=== PATIENT | male | born 1980 | race Caucasian/White ===

== ENCOUNTER → 2017-07-20 11:28 | Outpatient (CLI) | payer OTHER, SELFPAY ==
[2017-07-20 10:22] VITALS: BP 126/78; BMI 27.6
[2017-07-20 12:36] LABS: Anion Gap 7 (5-15); BUN 18 mg/dL (7-18); BUN/Creat Ratio 18.1 RATIO (10-20); Calcium,Total 8.6 mg/dL (8.5-10.1); Chloride 106 mmol/L (98-107); Cholesterol 197 mg/dL (200); Creatinine, Serum 0.99 mg/dL (0.70-1.30); EST Glomerular Filtration Rate 91 mL/min (>60); Est Glom Filt Rate - Afr Amer 110 mL/min (>60); Glucose 92 mg/dL (74-106); High Density Lipoprotein 35 mg/dL; Potassium 4.1 mmol/L (3.5-5.1); Sodium Level 140 mmol/L (136-145); Thyroid Stim Hormone (TSH) 1.34 uIU/mL (0.358-3.74); Triglycerides 132 mg/dL; Very Low Density Lipoprotein 26 mg/dL (5-40)
== END ==
PROVIDERS: Family Provider Physician Assistant; PCP Physician Assistant; Visit Provider Internal Medicine Cardiovascular Disease
DX: R07.9 Chest pain, unspecified (principal); R00.2 Palpitations
CPT/HCPCS: 36415; 80048; 80061; 84443

== ENCOUNTER 2018-01-01 14:11 | Emergency (ER) | payer OTHER, SELFPAY ==
[2018-01-01 14:12] VITALS: BP 130/73; PULSE 74; RESP 16; TEMP 36.7; O2SAT 98; BMI 29.0
[2018-01-01] MEDS: Diphth,Pertuss(Acell),Tet Vac 0.5 ML Vial IM (14:53)
--- NOTE | 2018-01-01 15:17 | ED.VISSUMM ---
- ER Visit Summary Date of Service: 01/01/18 Chief Complaint: Dog bite to face History of Present Illness: The patient is a 37 M who went over to his attendant/neighbor's house to have a beer this afternoon and the tenants dog jumped up onto his face and bit him. He notes a laceration over the right infraorbital skin. Denies any direct ocular trauma. Notes his tetanus is not up-to-date. Physical Examination: Afebrile vital signs are stable There is approximately a 1.5 cm T-shaped laceration to the right infraorbital skin. It is gaping. There is abrasion to the upper lid. I do not see any global trauma. Emergency Department Course and Treatment: Tetanus was updated with Jocelin. Wound was locally anesthetized using 1% lidocaine. 2 5-0 simple interrupted rapid stitches were placed. Wound care discussed with patient. We talked about the high risk of infection. He will be placed on Augmentin. Impression: 1. 1.5 cm facial laceration with repair 2. Dog bite 3. Tetanus update This note was generated with [employer] dictation software. It may contain incorrect words, spelling, and punctuation that were not noted in review of the chart prior to signing ED Disposition - Plan for ED Patient: Disposition: Home or Assisted Living Chief Complaint: Bite Instructions: ED Bite Dog Prescriptions: Amox/Clavulanate Tablet [Augmentin Tablet] 875 mg PO Q12H #20 tab Referrals: Pj Ovalle PA [Primary Care Provider] - As Needed
--- NOTE | 2018-01-01 15:20 | ED.DCSUM_ITS ---
- ER Visit Summary Date of Service: 01/01/18 Chief Complaint: Dog bite to face History of Present Illness: The patient is a 37 M who went over to his attendant /neighbor's house to have a beer this afternoon and the tenants dog jumped up onto his face and bit him. He notes a laceration over the right infraorbital skin. Denies any direct ocular trauma. Notes his tetanus is not up-to-date. Physical Examination: Afebrile vital signs are stable There is approximately a 1.5 cm T-shaped laceration to the right infraorbital skin. It is gaping. There is abrasion to the upper lid. I do not see any global trauma. Emergency Department Course and Treatment: Tetanus was updated with Jocelin. Wound was locally anesthetized using 1% lidocaine. 2 5-0 simple interrupted rapid stitches were placed. Wound care discussed with patient. We talked about the high risk of infection. He will be placed on Augmentin. Impression: 1. 1.5 cm facial laceration with repair 2. Dog bite 3. Tetanus update This note was generated with [employer] dictation software. It may contain incorrect words, spelling, and punctuation that were not noted in review of the chart prior to signing ED Disposition - Plan for ED Patient: Disposition: Home or Assisted Living Chief Complaint: Bite Instructions: ED Bite Dog Prescriptions: Amox/Clavulanate Tablet [Augmentin Tablet] 875 mg PO Q12H #20 tab Referrals: Pj Ovalle PA [Primary Care Provider] - As Needed
== END 2018-01-01 15:33 | disposition home or self-care (01) ==
PROVIDERS: Emergency Provider Emergency Medicine; Family Provider Physician Assistant; PCP Physician Assistant
DX: S01.111A Laceration without foreign body of right eyelid and periocular area, initial encounter (principal); Z23 Encounter for immunization; W54.0XXA Bitten by dog, initial encounter; Y93.89 Activity, other specified; Y92.008 Other place in unspecified non-institutional (private) residence as the place of occurrence of the external cause; Y99.8 Other external cause status
CPT/HCPCS: 12011; 90471; 90715; 99283

== ENCOUNTER → 2019-03-27 | Outpatient (CLI) | payer OTHER, SELFPAY ==
[2019-03-20 15:40] VITALS: BMI 27.6
[2019-03-27 13:06] LABS: ALB/GLOB Ratio 1.2 RATIO (0.9-2.4); AST(SGOT) 16 U/L (15-37); Alanine Aminotransfer ALT/SGPT 35 U/L (16-61); Albumin, Serum 4.3 g/dL (3.2-5.0); Alkaline Phosphatase 62 U/L (45-117); Anion Gap 5 (5-15); BUN 13 mg/dL (7-18); BUN/Creat Ratio 13.1 RATIO (10-20); Calcium,Total 9.3 mg/dL (8.5-10.1); Chloride 107 mmol/L (98-107); Cholesterol 206 mg/dL (200); Creatinine, Serum 0.99 mg/dL (0.70-1.30); EST Glomerular Filtration Rate 90 mL/min (>60); Est Glom Filt Rate - Afr Amer 109 mL/min (>60); Globulin 3.6 g/dL (2.2-4.2); Glucose 95 mg/dL (74-106); High Density Lipoprotein 38 mg/dL; Protein, Total 7.9 g/dL (6.4-8.2); Sodium Level 138 mmol/L (136-145); Triglycerides 89 mg/dL; Very Low Density Lipoprotein 18 mg/dL (5-40)
== END | disposition home or self-care (01) ==
LOC: BIMLAB 11:56
PROVIDERS: Family Provider Physician Assistant; PCP Physician Assistant; Visit Provider Family Medicine
DX: R07.9 Chest pain, unspecified (principal)
CPT/HCPCS: 36415; 80053; 80061

== ENCOUNTER 2019-04-08 12:34 | Emergency (ER) | payer OTHER, SELFPAY ==
[2019-03-20 15:40] VITALS: BMI 27.6
[2019-04-08 12:35] VITALS: BP 154/81; PULSE 96; RESP 154; TEMP 37.2; O2SAT 99; BMI 27.3
--- NOTE | 2019-04-08 13:00 | EKG12_ITS ---
Test Reason : CP Blood Pressure : / mmHG Vent. Rate : 097 BPM Atrial Rate : 097 BPM P-R Int : 166 ms QRS Dur : 084 ms QT Int : 342 ms P-R-T Axes : 037 014 026 degrees QTc Int : 434 ms Normal sinus rhythm Normal ECG Confirmed by AKUA LIU, MORTEZA ([id number]), managing editor ADIS OWENS ([id number]) on 04/10/2019 11:03:54 AM Referred By: Confirmed By:MORTEZA FATIMA MD
--- NOTE | 2019-04-08 13:01 | ED.VIS.CHEST ---
History of Present Illness Chief Complaint: Chest Pain Informant: Patient, Spouse/S.O. Current Severity: Mild Maximum Severity: Moderate Worsened By: - - lying supine. certain movements sometimes; today w/ brushing teeth. Relieved By: - - activity/exertion. Sometimes better after a good burp. Associated Symptoms: Palpitations - occasionally. Negative for: Nausea, Vomiting, Diaphoresis, Dyspnea, Cough, Fever, Lightheadedness Narrative: Patient has been having his symptoms for about a year. He states he has had upper substernal mild chest pressure constantly for the past month. He has seen cardiology Dr. Carbera, he saw him 4 days ago, recommended that he go forward with a stress test and echocardiogram to rule out cardiac etiologies which are low on the differential in this patient without any risk factors and he was otherwise healthy. He did have a CT scan that showed a hiatal hernia, this was remote and he was put on Prilosec but about a year ago when he saw Dr. Cabrera he was taken off of it. He has not tried it since. He has tried no antacid medications. He never had any of this discomfort while he was on the Prilosec. He presents today because for the first time, he was brushing his teeth and the discomfort seemed to move back and forth from the right to the left of sternum along with his arm as he was brushing and he thought that was unusual and it worried him. He admits, and also, that he has a high level of stress and anxiety. CVD Risk Factors: Negative for: Hypertension, Diabetes, Hypercholesterolemia, Family History 1' </=55, Smoking Past Medical History - Allergies and Home Meds Allergies/Adverse Reactions: Allergies bee venom protein (honey bee) Allergy (Severe, Verified 04/04/19 12:52) Hives Swelling & SOB Primary Care Physician: Naveen Zaidi DO [Primary Care Provider] - Past Medical History: None Lives: Spouse/ Significant Other Smoking Status: Never smoker Drugs: None Review of Systems General: Denies: Chills, Fever, Sweats Eyes: Denies: Visual changes - bilaterally, Diplopia ENT: Denies: Rhinorrhea, Sore throat Cardiovascular: Reports: Chest pain. Denies: Palpitations Respiratory: Denies: Dyspnea, Cough, Dyspnea on exertion Gastrointestinal: Denies: Abdominal pain, Nausea, Vomiting, Diarrhea, Melena, Hematochezia Genitourinary: Denies: Dysuria, Hematuria, Frequency Musculoskeletal: Denies: Back pain, Extremity Pain Skin: Denies: Rash, Wounds Neurological: Denies: Headache, Weakness, Numbness Psych: Reports: Anxiety. Denies: Suicidal thoughts Physical Exam Vital Signs/Narrative: Vital Signs Temp Pulse Resp BP Pulse Ox 04/08/19 12:35 99.0 F 96 154 H 154/81 H 99 Inital Vital Signs reviewed: Yes General: Well nourished, Well developed, No Acute Distress Head: Normocephalic, Atraumatic Eyes: Perrl, EOMI ENT: Moist mucous membranes, No rhinorrhea Neck: Supple, Nontender, No JVD Cardiovascular: Regular rate, Regular rhythm, No murmurs, Normal S1, Normal S2. Negative for: Tachycardia Respiratory: No distress, CTA bilaterally, Chest nontender Abdomen: Soft, Nontender, Nondistended, Normal bowel sounds Back: Nontender, Normal Inspection Extremities: Nontender, No edema. Negative for: Calf Tenderness Skin: Normal color, No rash, No Trauma Neurological: Alert, Oriented x3, Cranial nerves II-XII grossly intact, Normal Strength, Normal Sensation Psychological: Normal affect, Normal Mood Diagnostic/Tx/Re-eval - Rhythm Strip Rhythm Strip: Sinus Rhythm Rate: 95 Ectopy: None - EKG Initial EKG Interpretation: Sinus Rhythm, No Acute Injury Pattern - Normal EKG, normal axis, no repolarization of normalities. Treatment: GI Cocktail ROSSI Risk: No Positive ROSSI Elements Score: 0 - Medical Decision Making I suspect indeed this all is esophageal in nature. He is given a GI cocktail. EKG is normal. I feel he can safely follow-up with cardiology and PCP with tests as scheduled to rule out cardiac etiologies. He is comfortable with this plan. ED Disposition - Plan for ED Patient: Disposition: Home or Assisted Living Diagnosis: Chest pain, unspecified Instructions: CHEST PAIN, NonCardiac Referrals: Naveen Zaidi, [Primary Care Provider] - As Needed (In follow-up for test as scheduled/ordered)
--- NOTE | 2019-04-08 13:06 | NURSING ---
NO OLD EKGS
[2019-04-08 14:25] VITALS: BP 127/82; PULSE 71; RESP 16; O2SAT 99
[2019-04-08] MEDS: Mag Hydrox/Al Hydrox/Simeth 30 ML UDC PO (14:25)
[2019-04-08 15:03] VITALS: BP 132/81; PULSE 61; RESP 14; O2SAT 99
== END 2019-04-08 15:08 | disposition home or self-care (01) ==
PROVIDERS: Emergency Provider Emergency Medicine; Family Provider Family Medicine; PCP Family Medicine
DX: R07.9 Chest pain, unspecified (principal)
CPT/HCPCS: 93005; 99284; A4216

== ENCOUNTER → 2019-04-16 | Outpatient (CLI) | payer OTHER, SELFPAY ==
[2019-03-20 15:40] VITALS: BMI 27.6
[2019-04-08 12:35] VITALS: BMI 27.3
--- NOTE | 2019-04-16 11:00 | ECHOD_ITS ---
Reason For Study: PALPITATIONS Procedure This was a 2D Doppler, Color Flow transthoracic echocardiogram. Exam performed in department. Left Ventricle Normal LV size. Left ventricular systolic function is normal. The estimated ejection fraction is 65 %. Normal diastology for age. No regional wall motion abnormalities noted. Right Ventricle Normal RV size. Normal systolic function. Atria Normal left atrium. Normal right atrium. Mitral Valve Normal mitral valve. Tricuspid Valve Normal tricuspid valve. Aortic Valve Normal aortic valve. Trisinus/trileaflet aortic valve. Pulmonic Valve Normal pulmonic valve. Great Vessels Normal aortic root. The pulmonary artery is normal size. Normal inferior vena cava. Pericardium/Pleural No pericardial effusion. MMode/2D Measurements & Calculations LVIDd: 4.6 cm IVSd: 0.83 cm Ao root diam: 3.3 cm LVIDs: 3.1 cm LVPWd: 0.85 cm RVDd: 3.3 cm FS: 32.7 % LAV(MOD-bp): 37.1 ml LA A4 area: 12.7 cm2 LA dimension(2D): 3.7 cm LAV(MOD-bp) Indexed: 16.0 ml/m2 LAV(MOD-sp2): 43.7 ml LAV(MOD-sp4): 29.7 ml RA A4 area: 10.8 cm2 Time Measurements MV dec time: 0.16 sec Doppler Measurements & Calculations MV E max dennis: 80.1 cm/sec Lat Peak E' Dennis: 16.9 cm/sec Med Peak E' Dennis: 10.5 cm/sec MV A max dennis: 69.1 cm/sec E/E' lat: 4.7 E/E' med: 7.6 MV E/A: 1.2 Ao V2 max: 137.3 cm/sec LV V1 max: 125.9 cm/sec PA V2 max: 131.4 cm/sec Ao max P.5 mmHg LV V1 max P.3 mmHg PI end-d dennis: 113.6 cm/sec Interpretation Summary Normal LV size. Left ventricular systolic function is normal. The estimated ejection fraction is 65 %. Normal diastology for age. Structurally normal valves. Ordering Physician: Naveen Zaidi Referring Physician: Naveen Zaidi Performed By: Leny Archuleta, BERTIN, RVT
--- NOTE | 2019-04-16 13:23 | STRESSREP ---
Stress Test Report Exercise stress test. 39-year-old male with a history of chest pain. Stress protocol: Resting EKG demonstrates normal sinus rhythm with a rate of 97 bpm normal intervals are noted resting blood pressures 138/82 mmHg. Patient exercised according to regular [facility] protocol for total duration of 10 minutes the maximum heart rate attained was 176 bpm which was 96% maximum predicted heart rate the maximum workload was 11.9 metabolic equivalents. Patient maintained sinus rhythm throughout the recording. At rest there were no ST or T wave changes noted suggest ischemia peak exercise upsloping ST changes were noted with no meet the criteria for ischemia. Resting blood pressure 138/82 with a peak blood pressure 188/68. No clinical angina was noted the test was terminated due to the leg discomfort and target heart rate being achieved. Conclusion: Exercise stress test with no EKG criteria for ischemia at a high workload. No clinical angina noted. No arrhythmias noted.
== END | disposition home or self-care (01) ==
LOC: CVS 10:59
PROVIDERS: Family Provider Family Medicine; PCP Family Medicine; Referring Provider Family Medicine; Visit Provider Family Medicine
DX: R07.9 Chest pain, unspecified (principal)
CPT/HCPCS: 93017; 93306

== ENCOUNTER → 2020-03-06 | Outpatient (CLI) | payer OTHER, SELFPAY ==
[2020-03-05 16:13] VITALS: BMI 27.3
[2020-03-06 15:46] LABS: ALB/GLOB Ratio 1.1 RATIO (0.9-2.4); AST(SGOT) 17 U/L (15-37); Alanine Aminotransfer ALT/SGPT 38 U/L (16-61); Albumin, Serum 4.2 g/dL (3.2-5.0); Alkaline Phosphatase 61 U/L (45-117); Anion Gap 7 (5-15); BUN 18 mg/dL (7-18); BUN/Creat Ratio 18.1 RATIO (10-20); Calcium,Total 9.2 mg/dL (8.5-10.1); Chloride 102 mmol/L (98-107); Cholesterol 210 mg/dL (200); EST Glomerular Filtration Rate 89 mL/min (>60); Est Glom Filt Rate - Afr Amer 108 mL/min (>60); Globulin 3.7 g/dL (2.2-4.2); Glucose 88 mg/dL (74-106); High Density Lipoprotein 38 mg/dL; Protein, Total 7.9 g/dL (6.4-8.2); Sodium Level 136 mmol/L (136-145); Triglycerides 92 mg/dL; Very Low Density Lipoprotein 18 mg/dL (5-40)
== END | disposition home or self-care (01) ==
LOC: BIMLAB 13:13
PROVIDERS: PCP Family Medicine; Referring Provider Family Medicine; Visit Provider Family Medicine
DX: E78.5 Hyperlipidemia, unspecified (principal)
CPT/HCPCS: 36415; 80053; 80061

== ENCOUNTER → 2020-04-17 13:18 | Outpatient (CLI) | payer SELFPAY ==
[2020-04-09 08:26] VITALS: BMI 26.7
[2020-04-17 13:26] VITALS: BP 138/85; PULSE 70; RESP 16; O2SAT 99; BMI 25.9
--- NOTE | 2020-04-17 13:45 | CT_ITS ---
STUDY: CARDIAC CALCIUM SCORING - CT CHEST REASON FOR EXAM: Male, 40 years old. CHEST PAIN. LIMITED CHEST OVER READ ONLY RADIATION DOSAGE (If Supplied By Facility): CTDIvol = ( 12.19 ) mGy, DLP = ( 195.04 ) mGycm TECHNIQUE: Axial non-enhanced images were acquired through the heart for the sole purpose of measuring coronary artery calcium. Individualized dose optimization techniques were used for this CT. COMPARISON: None. FINDINGS: Lungs are normal with minimal atelectasis in the lingula and benign calcified granulomata in the left lower lobe. Pleural surfaces are intact. Visualized airways are patent. Mediastinal contents are normal. Osseous structures are intact. CT/Limited Chest CT w/CCTA IMPRESSION: Normal extracardiac thoracic structures. Please go to: [email or web address] , for a description of the calculator. Electronically Signed: Ro Flynn, at 16:27 EST Tel , Service support ,
--- NOTE | 2020-04-17 16:56 | CA.SCORE ---
Calcium Scoring Date of Study:: 04/17/20 Coronary Calcium Scoring: High-resolution Computed Tomographic imaging of the chest was performed on [04/17/20 ], with particular attention paid to the coronary arteries. Images from the examination were analyzed for the presence and extent of coronary artery calcification , using coronary calcium quantification software. The patient tolerated the procedure well and there were no complications. The results of the coronary calcification analysis are provided below. - Findings Left Main (LM): 0 Left Anterior Descending (LAD): 0 Left Circumflex (LCX): 0 Right Coronary Artery (RCA): 0 Total Agatston Score: 0 Calcium Scoring Interpretation: 0 No identifiable atherosclerotic plaque. Very low cardiovascular disease risk. <5% chance of presence coronary artery disease A Negative Examination 1-10 Minimal Plaque burden. Significant coronary artery disease very unlikely. 11-100 Mild plaque burden. Likely mild or minimal coronary atherosclerosis. 101-400 Moderate plaque burden Moderate non-obstructive coronary artery disease highly likely. Over 400 Extensive plaque burden. High likelihood of at least one significant coronary stenosis (>50% diameter) Calcium Score: 0 Negative Examination - No significant atherosclerotic cardiovascular disease is noted.
== END ==
PROVIDERS: PCP Family Medicine; Referring Provider Nurse Practitioner Family; Visit Provider Nurse Practitioner Family
DX: R07.9 Chest pain, unspecified (principal)
CPT/HCPCS: 75571; 76380

== ENCOUNTER → 2022-06-25 | Outpatient (CLI) | payer OTHER, SELFPAY ==
[2022-06-25 12:25] LABS: Absolute Lymphocyte Count 2.51 X10^3/uL (0.83-4.51); Absolute Neutrophil Count 4.1 X10^3/uL (2.0-7.7); Basophil# 0.03 X10^3/uL; Basophil% 0.4 % (0-1); Eosinophil# 0.16 X10^3/uL; Eosinophils% 2.2 % (0-5); Lymphocyte # 2.51 X10^3/ul (0.83-4.51); Lymphocyte % 34.4 % (19-41); Mean Corp Hgb Conc 35.6 g/dL (32-36); Mean Corpuscular Hgb 32.3 pg (27.0-32.0); Mean Corpuscular Volume 90.9 fL (80-94); Mean Platelet Vol. 9.4 fl (6.2-12.0); Monocyte# 0.44 X10^3/uL; NRBC Flagged by Analyzer 0 % (0-5); Neutrophil # 4.13 X10^3/uL (2.7-7.7); Neutrophil % 56.6 % (47-70); Platelet Count 298 K/mm3 (150-450); RBC Distribution Width CV 12.8 % (11.6-14.6); RBC Distribution Width SD 41.9 fl (35.1-43.9); Red Blood Count 4.95 M/mm3 (4.6-6.2); White Blood Count 7.3 K/mm3 (4.4-11.0)
[2022-06-25 12:45] LABS: Vitamin B12 446 pg/mL (211-911); Vitamin D,25 Hydroxy 27.3 ng/mL
[2022-06-25 13:01] LABS: AST(SGOT) 23 U/L (15-37); Alanine Aminotransfer ALT/SGPT 52 U/L (16-61); Alkaline Phosphatase 61 U/L (45-117); Anion Gap 6 (5-15); BUN 16 mg/dL (7-18); BUN/Creat Ratio 15.2 RATIO (10-20); Calcium,Total 9.3 mg/dL (8.5-10.1); Chloride 109 mmol/L (98-107); Cholesterol 245 mg/dL (200); Creatinine, Serum 1.05 mg/dL (0.70-1.30); EST Glomerular Filtration Rate 83 mL/min (>60); Est Glom Filt Rate - Afr Amer 100 mL/min (>60); Globulin 3.9 g/dL (2.2-4.2); Glucose 108 mg/dL (74-106); High Density Lipoprotein 40 mg/dL; Potassium 4.5 mmol/L (3.5-5.1); Protein, Total 7.9 g/dL (6.4-8.2); Sodium Level 139 mmol/L (136-145); Triglycerides 128 mg/dL; Very Low Density Lipoprotein 26 mg/dL (5-40)
== END | disposition home or self-care (01) ==
LOC: BIMLAB 08:55
PROVIDERS: PCP Family Medicine; Referring Provider Nurse Practitioner Family; Visit Provider Nurse Practitioner Family
DX: Z00.00 Encounter for general adult medical examination without abnormal findings (principal); I10 Essential (primary) hypertension; E78.00 Pure hypercholesterolemia, unspecified; E56.9 Vitamin deficiency, unspecified
CPT/HCPCS: 36415; 80053; 80061; 82306; 82607; 84443; 85025

== ENCOUNTER → 2024-09-05 | Outpatient (CLI) | payer OTHER, SELFPAY ==
[2024-09-05 13:12] LABS: ALB/GLOB Ratio 1.6 RATIO (0.9-2.4); AST(SGOT) 27 U/L (<=37); Alanine Aminotransfer ALT/SGPT 40 U/L (<=46); Albumin, Serum 4.5 g/dL (3.5-5.0); Alkaline Phosphatase 56 U/L (40-129); Anion Gap 12 (5-15); BUN 14 mg/dL (4-19); BUN/Creat Ratio 13.1 RATIO (10-20); Calcium,Total 8.7 mg/dL (7.6-11.0); Carbon Dioxide 22.7 mmol/L (21.0-32.0); Chloride 104 mmol/L (98-108); Cholesterol 242 mg/dL (<=200); Creatinine, Serum 1.03 mg/dL (0.70-1.20); EST Glomerular Filtration Rate 93 (>60); Globulin 2.8 g/dL (2.2-4.2); Glucose 108 mg/dL (70-99); High Density Lipoprotein 42 mg/dL; Low Density Lipoprotein Calc. 169 mg/dL; Potassium 4.5 mmol/L (3.3-5.1); Protein, Total 7.3 g/dL (5.9-8.4); Sodium Level 139 mmol/L (133-145); Total Bilirubin 0.39 mg/dL (0.00-1.30); Triglycerides 156 mg/dL; Very Low Density Lipoprotein 31 mg/dL (5-40); cholesterol:hdl ratio screen 5.72
== END | disposition home or self-care (01) ==
LOC: BIMLAB 09:16
PROVIDERS: PCP Family Medicine; Referring Provider Family Medicine; Visit Provider Family Medicine
DX: E78.00 Pure hypercholesterolemia, unspecified (principal)
CPT/HCPCS: 36415; 80053; 80061